=== PATIENT | female | born 1980 | race Two or more races ===

== ENCOUNTER → 2024-09-12 | Outpatient (CLI) | payer MEDICAID, SELFPAY ==
[2024-09-12 12:13] LABS: HCG Qualitative,Urine Negative
--- NOTE | 2024-09-12 12:30 | XR_ITS ---
Examination: MRI abdomen with intravenous contrast. MRI abdomen without intravenous contrast. Date and time of exam: September 12, 2024 1324 hours INDICATIONS: Left-sided abdominal pain beginning one year ago, 18 mm solid mass lower pole left kidney on CT abdomen study June 30, 2024 Technique: Multiple axial, sagittal and coronal sections of the abdomen obtained. Transverse images, TR 6020, TE 107. T1 weighted transverse images, TR 582, TE 9.5. T2-weighted sagittal images, TR 4000, TE 105. T2-weighted sagittal images, TR 4000, TE 5. Coronal images, TR 4210, TE 107. Axial and coronal images are obtained post 20 cc intravenous injection, gadolinium. Findings: No focal liver lesions or biliary tract infection No gallstones Normal common hepatic common bile duct Spleen is not enlarged No pancreatic mass Aorta normal size No definite solid masses depicted on this study, no abnormal enhancing renal lesions on the postcontrast images IMPRESSION: No definite solid mass is confirmed upper left kidney Recommend this patient return for dedicated renal sonography with the radiologist in attendance
== END | disposition home or self-care (01) ==
PROVIDERS: PCP Physician Assistant; Referring Provider Physician Assistant; Visit Provider Physician Assistant
DX: N28.89 Other specified disorders of kidney and ureter (principal); Z32.00 Encounter for pregnancy test, result unknown
CPT/HCPCS: 74183; 81025; A9579

== ENCOUNTER → 2024-11-21 | Outpatient (CLI) | payer MEDICAID, SELFPAY ==
--- NOTE | 2024-11-21 12:28 | XR_ITS ---
Examination: Retroperitoneal ultrasound, complete Technique: Multiple high resolution grayscale images of the retroperitoneum obtained, including kidneys and bladder. Exam date and time:December 01, 2024 1248 hours INDICATIONS: Left lower quadrant abdominal pain left flank pain beginning 3 months ago FINDINGS: Right kidney 10.8 cm cortex 1.5 cm Left kidney 11.8 cm renal cortex 1.2 cm Mild left hydronephrosis Multiple hyperechoic areas in the lower pole left kidney, the largest 17 mm, which may represent calculi, no solid renal mass lesion Bladder prevoid volume 279 cc IMPRESSION: Multiple hyperechoic areas in the lower pole left kidney, the largest 17 mm, which may represent renal calculi
== END | disposition home or self-care (01) ==
PROVIDERS: PCP Nurse Practitioner Family; Referring Provider Nurse Practitioner Family; Visit Provider Nurse Practitioner Family
DX: N28.89 Other specified disorders of kidney and ureter (principal)
CPT/HCPCS: 76770